=== PATIENT | female | born 1990 | race Two or more races ===

== ENCOUNTER 2022-11-17 18:58 | Emergency (ER) | payer BC ==
[~2022-11-17] VITALS: Ht 170.2 cm; Wt 79.4 kg
[2022-11-18] MEDS ORDERED: TRAM1TAB98 PO (11:14)
[2022-11-18] MEDS ORDERED: WALKER (11:14)
[2022-11-18] MEDS ORDERED: ELIQUIS2.5 MG PO (11:14)
== END 2022-11-18 11:49 | disposition home or self-care (01) ==
LOC: ER 18:58
DX: S32.491A Other specified fracture of right acetabulum, initial encounter for closed fracture (principal); S72.091A Other fracture of head and neck of right femur, initial encounter for closed fracture; X58.XXXA Exposure to other specified factors, initial encounter; Y93.89 Activity, other specified; Y92.89 Other specified places as the place of occurrence of the external cause; Y99.8 Other external cause status; M25.551 Pain in right hip